=== PATIENT | male | born 2000 | race Caucasian/White ===

== ENCOUNTER 2022-08-09 17:36 | Emergency (ER) | payer OTHER, SELFPAY ==
[2022-08-09 18:05] VITALS: BP 115/70; PULSE 60; RESP 16; TEMP 36.6; O2SAT 100; BMI 18.6
--- NOTE | 2022-08-09 20:06 | CRLHL7_ITS ---
For Patients: As a result of the Cures Act, medical imaging exams and procedure reports are released immediately into your electronic medical record. You may view this report before your referring provider. If you have questions, please contact your health care provider. INDICATION: TENNIS BALL HIT ON HIS LEFT FACE -LEFT EYE INJURY CT FACE WITHOUT CONTRAST TECHNIQUE: Multidetector axial CT imaging was performed through the face without contrast. Coronal and sagittal reconstructions were generated. FINDINGS: No acute fractures are identified. The orbits and their contents are within normal limits. The paranasal sinuses are normally aerated. The mandible and temporomandibular joints are intact. Mastoid air cells are clear. IMPRESSION: No fracture or other acute finding. EVETTE CLAY MD [facility] Please note that all CT scans at this facility use dose modulation, iterative reconstruction, and/or weight-based dosing when appropriate to reduce radiation dose to as low as reasonably achievable. Dictated by: Guru Clay MD @ 08/09/2022 20:46:49 (Electronically Signed)
--- NOTE | 2022-08-09 20:20 | ED_ITS ---
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 Pt has blurry vision in the left eye as well as discomfort. Pt has no double vision. No headache. Pt did not lose consciousness and did not fall to the ground. Pt states the eye is red and he has mild discomfort. Pt is otherwise uninjured and has no symptoms in the right eye. Related Data Patient tetanus UTD: Yes Home Medications Medication Instructions Recorded Confirmed No Known Home Medications 08/09/22 08/09/22 Allergies Allergy/AdvReac Type Severity Reaction Status Date / Time amphetamine [From Adderall] Allergy Mild Agitation Verified 08/09/22 20:49 dextroamphetamine Allergy Mild Agitation Verified 08/09/22 20:49 [From Adderall] Review of Systems Status of ROS: Reports: 10 or more systems reviewed and unremarkable except as noted in History and below [facility] Medical History (Updated 08/09/22 @ 21:06 by Ricardo Wong MD) ADHD (attention deficit hyperactivity disorder) Surgical History (Updated 08/09/22 @ 20:28 by James Peraza RN) No significant past surgical history Social History Smoking Status: Never smoker Do you use any of these nicotine containing products: None Second hand tobacco smoke exposure: No How often do you have a drink containing alcohol: never How often do you have six or more drinks on one occasion: Never AUDIT-C Alcohol total score: 0 Non-prescribed substance use: denies use Exam Narrative: Exam Narrative: EXAM GENERAL: Patient appears comfortable and well. EYES: No scleral icterus. THYROID: no thyroid nodules or thyromegaly. LYMPH: No supraclavicular or cervical lymphadenopathy. SKIN: Visible skin seen during exam normal or with benign process only. EXT: No dependent lower extremity pedal edema. HEART: Regular rate and rhythm with no murmurs, rubs, or gallops. LUNGS: Clear to auscultation bilaterally with no crackles or wheezes. ABD: Soft, non tender, non distended. PSYCH: Good eye contact, speech is not pressured. Const: Vital Signs, click to edit/add: Vital Signs - 24 hr 08/09/22 18:05 Temperature 97.9 F Pulse Rate [Pulse Oximeter] 60 Respiratory Rate 16 Blood Pressure [Ri ght Upper Arm] 115/70 Pulse Oximetry 100 Oxygen Delivery Me thod Room Air Eye: Common normals: PERRL, EOMs intact bilaterally, conjunctivae normal, no scleral icterus, no papilledema, normal visual carrera by confrontation and fundi normal bilaterally Conjunctiva: conjunctiva(e) normal Pupil: PERRL Dir ect Ophthalmoscopy: no papilledema and fundi normal bilaterally Course Course Hospital Course: Pt seen and examined. CT of facial bones ordered. Reevaluation(s) Reevaluation #1: CT of facial bones negative for acute injury Time: 20:52 Vital Signs Vital signs: Initial Vital Signs Temperature 97.9 F 08/09/22 18:05 Temperature Source Temporal Artery Scan 08/09/22 18:05 Pulse Rate 60 08/09/22 18:05 Pulse Rhythm 08/09/22 18:05 Pulse Strength 3+ Normal 08/09/22 18:05 Respiratory Rate 16 08/09/22 18:05 Blood Pressure 115/70 08/09/22 18:05 Blood Pressure Mean 85 08/09/22 18:05 Pulse Oximetry 100 08/09/22 18:05 Oxygen Delivery Method 08/09/22 18:05 Vital Signs Temperature 97.9 F 08/09/22 18:05 Pulse Rate 60 08/09/22 18:05 Respiratory Rate 16 08/09/22 18:05 Blood Pressure 115/70 08/09/22 18:05 Pulse Oximetry 100 08/09/22 18:05 Oxygen Delivery Method 08/09/22 18:05 Temperature 97.9 F 08/09/22 18:05 Pulse Rate 60 08/09/22 18:05 Respiratory Rate 16 08/09/22 18:05 Blood Pressure 115/70 08/09/22 18:05 Pulse Oximetry 100 08/09/22 18:05 Oxygen Delivery Method 08/09/22 18:05 MDM - Eye Problem MDM Narrative Medical decision making narrative: 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 CT negative. Exam negative for acute injury. Vision is blurry. Pt will proceed with symptomatic care and follow with Optometry/Opthamalogy follow up when available. Vision down at 20/50 in the left eye. Differential Diagnosis Differential diagnosis: Likely corneal abrasion, periorbital cellulitis, subconjunctival hemorrhage and ruptured globe Discharge Plan Discharge Clinical Impression: Contusion Condition: Stable Instructions: Contusion in Adults (ED) Additional Instructions: Follow up with Optometry tomorrow. Activity Level: No Restrictions Discharge Diet: Regular Prescriptions: No Action No Known Home Medications Follow Up/Referrals: Bobby Kohli MD [Primary Care Provider] - Stand Alone Forms: [employer] Info Instructions
[2022-08-09 21:16] VITALS: BP 118/65; PULSE 65; RESP 16; TEMP 36.6; O2SAT 100
[2022-08-09 21:24] VITALS: BP 118/65; PULSE 65; RESP 16; TEMP 36.6
== END 2022-08-09 21:26 | disposition home or self-care (01) ==
PROVIDERS: Emergency Provider Internal Medicine; PCP Family Medicine
DX: S00.12XA Contusion of left eyelid and periocular area, initial encounter (principal); W21.09XA Struck by other hit or thrown ball, initial encounter; Y93.73 Activity, racquet and hand sports
CPT/HCPCS: 70486; 99283

== ENCOUNTER 2023-06-15 14:55 | Emergency (ER) | payer OTHER, SELFPAY ==
[2023-06-15] VITALS (11 sets, daily range): BP systolic 93–111; BP diastolic 51–58; PULSE 78–112; RESP 18; TEMP 38.2; O2SAT 95–99; BMI 19.7
--- NOTE | 2023-06-15 15:28 | CRLHL7_ITS ---
For Patients: As a result of the Cures Act, medical imaging exams and procedure reports are released immediately into your electronic medical record. You may view this report before your referring provider. If you have questions, please contact your health care provider. INDICATION: Sore throat. TECHNIQUE: Chest 1 views. COMPARISON: None. FINDINGS: Cardiovascular and mediastinum: Cardiomediastinal silhouette is within normal limits. Lungs and pleural spaces: Lungs are clear. No sign of pleural effusion. No pneumothorax. Bones and soft tissues: No significant findings. IMPRESSION: No acute cardiopulmonary process identified. Dictated by Bee Milan MD @ 06/15/2023 4:05:04 PM (Electronically Signed)
--- NOTE | 2023-06-15 15:34 | ED_ITS ---
HPI - General Adult General Date Seen: 06/15/23 Chief complaint: Sore Throat Stated complaint: COVID+ Time Seen by Provider: 06/15/23 15:18 Source: patient Mode of arrival: ambulatory Limitations: no limitations History of Present Illness HPI narrative: Patient is a 23-year-old male with no pertinent medical problems presenting to emergency department for COVID symptoms. He has been having symptoms with past 3 days it was diagnosed 2 days ago with COVID based on a home test. He states since then he has been having a worsening sore throat, shortness of breath, nausea/vomiting and diarrhea. He has been able eat and drink today and has not had any nausea since last night. He is unvaccinated for COVID. Denies ever having symptoms like this before. Denies abdominal pain, lightheadedness, dizziness, chills. Last took Tylenol at 14:00 an Advil at 09:30. Has full body muscle aches. Related Data Home Medications Medication Instructions Recorded Confirmed No Known Home Medications 08/09/22 06/15/23 Allergies Allergy/AdvReac Type Severity Reaction Status Date / Time amphetamine [From Adderall] Allergy Mild Agitation Verified 06/15/23 15:15 dextroamphetamine Allergy Mild Agitation Verified 06/15/23 15:15 [From Adderall] Review of Systems Status of ROS: Reports: 10 or more systems reviewed and unremarkable except as noted in History and below PFSH [facility] Medical History (Updated 06/15/23 @ 17:22 by Jair Pierre DO) ADHD (attention deficit hyperactivity disorder) ?F90.9 - Attention-deficit hyperactivity disorder, unspecified type (ICD-10) Surgical History (Updated 08/09/22 @ 20:28 by James Peraza RN) No significant past surgical history Social History Smoking Status: Never smoker Do you use any of these nicotine containing products: None Second hand tobacco smoke exposure: No How often do you have a drink containing alcohol: never How often do you have six or more drinks on one occasion: Never AUDIT-C Alcohol total score: 0 Non-prescribed substance use: denies use Exam Narrative: Exam Narrative: Const: Well-nourished, Well-developed, in mild distress Eyes: PERRL, no conjunctival injection, and symmetrical lids HENT: Atraumatic external nose and ears. Mildly erythematous oropharynx, uvula midline, no tonsillar exudates or swelling Neck: Symmetric, trachea midline, No thyromegaly. CVS: Tachycardic, No murmurs or gallops. Peripheral pulses 2+ and equal in all extremities RESP: Unlabored respiratory effort. Clear to auscultation bilaterally. GI: Nontender/Nondistended, No rebound or guarding. MSK:Extremities w/o deformity, Normal Active ROM Skin: Warm, Dry. No rashes or lesions. Neuro: Normal Muscle tone, No focal neurological deficits. Psych: Awake, Alert, & Oriented x3. Appropriate mood and affect. Const: Vital Signs, click to edit/add: Vital Signs - 24 hr 06/15/23 15:11 06/15/23 15:54 06/15/23 16:00 Temperature 100.7 F H Pulse Rate 87 81 Pulse Rate [Pulse Oximeter] 112 H Respiratory Rate 18 Blood Pressure Blood Pressure [Ri ght Upper Arm] 93/54 L Pulse Oximetry 96 98 99 Oxygen Delivery Me thod Room Air 06/15/23 16:15 06/15/23 16:30 06/15/23 16:35 Temperature Pulse Rate 80 81 78 Pulse Rate [Pulse Oximeter] Respiratory Rate Blood Pressure 111/58 L Blood Pressure [Ri ght Upper Arm] Pulse Oximetry 95 96 98 Oxygen Delivery Me thod Course Vital Signs Vital signs: Initial Vital Signs Temperature 100.7 F H 06/15/23 15:11 Temperature Source Temporal Artery Scan 06/15/23 15:11 Pulse Rate 112 H 06/15/23 15:11 Respiratory Rate 18 06/15/23 15:11 Blood Pressure 93/54 L 06/15/23 15:11 Blood Pressure Mean 67 L 06/15/23 15:11 Blood Pressure Position Sitting 06/15/23 15:11 Pulse Oximetry 96 06/15/23 15:11 Oxygen Delivery Method Room Air 06/15/23 15:11 Vital Signs Temperature 100.7 F H 06/15/23 15:11 Pulse Rate 112 H 06/15/23 15:11 Respiratory Rate 18 06/15/23 15:11 Blood Pressure 93/54 L 06/15/23 15:11 Pulse Oximetry 96 06/15/23 15:11 Oxygen Delivery Method Room Air 06/15/23 15:11 Temperature 100.7 F H 06/15/23 15:11 Pulse Rate 78 06/15/23 16:35 Respiratory Rate 18 06/15/23 15:11 Blood Pressure 111/58 L 06/15/23 16:35 Pulse Oximetry 98 06/15/23 16:35 Oxygen Delivery Method Room Air 06/15/23 15:11 Medications Administered Medications: Discontinued Medications Generic Name Dose Route Start Last Admin Trade Name Jessica PRN Reason Stop Dose Admin Dexamethasone 10 mg 06/15/23 15:28 06/15/23 15:53 Dexamethasone 4 Mg Tablet PO 06/15/23 15:29 10 mg ONCE ONE Administration Lactated Ringer's 1,000 mls @ 1,000 mls/hr 06/15/23 15:28 06/15/23 16:40 Lactated Ringers 1000 Ml IV 06/15/23 16:27 Infused .Q1H ONE Infusion Ketorolac Tromethamine 15 mg 06/15/23 15:28 06/15/23 15:53 Ketorolac 15 Mg/Ml Inj IVP 06/15/23 15:29 15 mg ONCE ONE Administration Medical Decision Making MDM Narrative Medical decision making narrative: Patient is a 23-year-old male presenting emergency department for COVID. Initial blood pressure was slightly low at 93/54 with a pulse of 112 with a temp 100.7?. He appears dehydrated at L of fluids were given. Toradol was given for his fever and throat pain. Also give him a dose of Decadron. BMP and CBC showed no concerning abnormalities. Lactate was within normal limits. He is not appear to be septic. Chest x-ray showed no concerning abnormalities. He is not having any chest pain at this time. And shortness of breath all appears related to the COVID. Is not the nauseated. Oropharynx is mildly erythematous but no signs of Teddy angina or retroperitoneal abscess. No stridor heard and no concern for deep neck space abscess. After the medications his heart rate improved along with his blood pressure and he is feeling much better he states. Chest x-ray showed no signs of pneumonia or pneumothorax. He does not meet criteria for paxlovid. He will be discharged on Zofran. He is agreeable to this plan. Lab Data Labs: Lab Results 06/15/23 Range/Units 16:00 WBC 5.40 (4.50-11.00) K/uL RBC 4.99 (4.30-5.90) m/uL Hgb 14.1 (13.5-17.5) gm/dL Hct 43.1 (37.0-53.0) % MCV 86 (80-100) fL MCH 28 (26-34) pg MCHC 33 (32-36) gm/dL RDW Coeff of Senia 12.0 (11.5-15.5) % Plt Count 214 (140-440) K/uL Neut % (Auto) 74.1 H (42.0-72.0) % Lymph % (Auto) 17.8 L (20-44) % Patrick % (Auto) 7.4 (0.0-11.0) % Eos % (Auto) 0.0 (0.0-7.0) % Baso % (Auto) 0.0 (0.0-3.0) % Neut # (Auto) 4.00 (1.7-7.0) K/uL Lymph # (Auto) 1.00 (0.90-2.90) K/uL Patrick # (Auto) 0.40 (0.00-0.90) K/UL Eos # (Auto) 0.00 (0.00-0.50) K/uL Baso # (Auto) 0.00 (0.00-0.30) K/uL Abs Immat Gran (auto) 0.04 (0.00-0.30) K/uL Imm/Tot Granulo (auto) 0.7 % Sodium 137 (135-149) mmol/L Potassium 3.6 (3.6-5.1) mmol/L Chloride 101 (96-114) mmol/L Carbon Dioxide 26 (20-32) mmol/L Anion Gap 10 (7-15) mEq/L BUN 12 (5-24) mg/dL Creatinine 1.0 (0.5-1.5) mg/dL Estimated Creat Clear 106.88 Estimated GFR 108 ml/min Glucose 100 (60-115) mg/dL Lactate 0.8 (0.5-1.9) mmol/L Calcium 8.7 (8.4-10.6) mg/dL Imaging Data Chest x-ray: Radiologist's impression: No acute cardiopulmonary process identified. Dictated by Bee Milan MD @ 06/15/2023 4:05:04 PM Discharge Plan Discharge Clinical Impression: COVID Patient Disposition: Home, Self-Care Condition: Improved Instructions: COVID-19 (Coronavirus Disease 2019) (ED) Additional Instructions: With your vomiting diarrhea he became dehydrated. Make sure you drink plenty of fluids and then drink more to keep yourself well hydrated. Use the Zofran as needed for nausea. Take Tylenol and ibuprofen for your fever. Return for new worsening symptoms. Prescriptions: No Action No Known Home Medications Follow Up/Referrals: Bobby Kohli MD [Primary Care Provider] - Stand Alone Forms: [employer] Info Instructions
[2023-06-15] MEDS: dexAMETHasone 4 MG TABLET 10 MG PO (15:53)
[2023-06-15] MEDS: KETOROLAC 15 MG/ML inj IVP (15:53)
[2023-06-15] MEDS: LACTATED RINGERS 1000 ML 1,000 ML IV (15:54)
[2023-06-15 16:07] LABS: Lactate* 0.8 mmol/L (0.5-1.9)
[2023-06-15 16:11] LABS: Hematocrit 43.1 % (37.0-53.0); Hemoglobin* 14.1 gm/dL (13.5-17.5); Immature Granulocytes Abs Auto 0.04 K/uL (0.00-0.30); Immature Granulocytes Pct Auto 0.7 %; Lymphocytes Percent Auto 17.8 % (20-44); Mean Corpuscular HGB Conc 33 gm/dL (32-36); Mean Corpuscular Hemoglobin 28 pg (26-34); Mean Corpuscular Volume 86 fL (80-100); Monocytes Percent Auto 7.4 % (0.0-11.0); Neutrophils Percent Auto 74.1 % (42.0-72.0); Platelet Count* 214 K/uL (140-440); Red Blood Count 4.99 m/uL (4.30-5.90)
[2023-06-15 16:18] LABS: Slide Review Reflex No
[2023-06-15 16:27] LABS: Chloride* 101 mmol/L (96-114); Potassium* 3.6 mmol/L (3.6-5.1); Sodium* 137 mmol/L (135-149)
[2023-06-15 16:30] LABS: Anion Gap 10 mEq/L (7-15); Blood Urea Nitrogen* 12 mg/dL (5-24); Carbon Dioxide* 26 mmol/L (20-32); Est. Creatinine Clearance* 106.88; Estimated Glomerular Filt Rate 108 ml/min; Glucose* 100 mg/dL (60-115)
[2023-06-15 16:31] LABS: Calcium* 8.7 mg/dL (8.4-10.6)
== END 2023-06-15 17:36 | disposition home or self-care (01) ==
PROVIDERS: Emergency Provider Student in an Organized Health Care Education/Training Program; PCP Family Medicine
DX: U07.1 COVID-19 (principal)
CPT/HCPCS: 36415; 71045; 80048; 83605; 85025; 95992; 96374; 99283; 99284; A9270; J1885; J7120